=== PATIENT | female | born 2000 | race Caucasian/White ===

== ENCOUNTER 2020-11-16 22:42 | Inpatient (IN) ==
[2020-11-16] MEDS ORDERED: LIDOCAINE/EPINEPH/TETRACAINE 1 EA SYR EXT STA (23:08)
[2020-11-16 23:27] LABS: Basophils # (auto) 0.02 K/uL (0-0.2); Basophils % (auto) 0.3 %; Eosinophils # (auto) 0.01 K/uL (0-0.5); Eosinophils % (auto) 0.1 %; Hematocrit (blood only) 41.8 % (37-47); Hemoglobin 14.6 g/dL (12.0-16.0); Immature Granulocytes # (auto) 0.03 K/uL (0.00-0.02); Immature Granulocytes % (auto) 0.4 %; Lymphocytes # (auto) 2.31 K/uL (1.2-3.4); Lymphocytes % (auto) 32.4 %; Mean Corpuscular Hemoglobin 28.4 pg (25-34); Mean Corpuscular Hgb Conc 34.9 g/dL (32-36); Mean Corpuscular Volume 81.3 fL (80-100); Mean Platelet Volume 9.6 fL (7.4-10.4); Monocytes # (auto) 0.35 K/uL (0.11-0.59); Monocytes % (auto) 4.9 %; Neutrophils % (auto) 61.9 %; Platelet Count 341 K/uL (130-400); RDW Coefficient of Variation 13.1 % (11.5-14.5); RDW Standard Deviation 39.7 fL (36.4-46.3); Red Blood Count 5.14 M/uL (4.2-5.4); White Blood Count 7.12 K/uL (4.8-10.8)
[2020-11-16 23:48] LABS: Acetaminophen 136 ug/ml (10-30); Alanine Aminotransferase 22 U/L (12-78); Albumin Level 4.4 gm/dl (3.4-5.0); Aspartate Aminotransferase 20 U/L (15-37); BUN Creatinine Ratio 8.4 (10-20); Blood Urea Nitrogen 6 mg/dl (7-18); Calcium 8.6 mg/dl (8.5-10.1); Carbon Dioxide 23 mmol/L (21-32); Chloride 112 mmol/L (98-107); Creatinine Clr Calc Pharmacy 128.2 ml/min; Est GFR (African American) 147.1; Est GFR (Non-African American) 126.9; Glucose 92 mg/dl (70-99); Potassium 3.5 mmol/L (3.5-5.1); Salicylate < 1.7 mg/dl (2.8-20); Sodium 143 mmol/L (136-145)
[2020-11-16 23:58] LABS: Albumin Globulin Ratio 1.4 (0.9-2); Alkaline Phosphatase 115 U/L (45-117); Bilirubin,Total 0.3 mg/dl (0.2-1); Globulin 3.3 gm/dl (2.5-4.0); Thyroid Stimulating Hormone 0.914 uIu/ml (0.300-4.500); Total Protein 7.7 gm/dl (6.4-8.2)
[2020-11-17] LABS: Pregnancy Test, Serum Negative (Negative)
[2020-11-17 00:20] LABS: Influenza A virus by PCR Negative (Neg); Influenza B virus by PCR Negative (Neg); RSV by PCR Negative (Neg); SARS CoV2 RNA(COVID-19) InHosp NEGATIVE (Negative)
--- NOTE | 2020-11-17 00:45 | Emergency Department Note ---
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 The patient has been having problems for many months. The patient is very tearful. The patient was at her home tonight when she started having very severe mental health issues. She became very despondent. Her family members involved the police who involved the patient's roommates. The patient barricaded herself in her room for 2 hours. She was finally convinced to come out of the room. She admits to self-harm and cut her legs. She also admits to using alcoholic beverages this evening. She denies having any homicidal ideation. She states that she continues to have significant thoughts of harming herself. The patient states that she has been trying to get into counseling for many months. She has been unable to. Crisis was involved in her care and presented to the emergency department with her. The patient has no recent trauma. The patient states that she has never been admitted to the hospital for anything similar. ROS: See above HPI for pertinent positives & negatives. A total of 10 systems reviewed and were otherwise negative. PAST MEDICAL HISTORY: See Below PAST SURGICAL HISTORY: See Below FAMILY HISTORY: See Below SOCIAL HISTORY: See Below HOME MEDICATIONS: See Below ALLERGIES: See Below VITALS: See Below PHYSICAL EXAMINATION: GENERAL: The patient is awake and alert. She is tearful and anxious appearing. EYES: The conjunctivae are injected. The pupils are round and reactive. EARS, NOSE, MOUTH AND THROAT: The nose is without any evidence of any deformity. NECK: The neck is nontender and supple. RESPIRATORY: Normal respiratory effort is noted there is no evidence of wheezing rhonchi or rales CARDIOVASCULAR: Regular rate and rhythm noted there no murmurs rubs or gallops normal S1 normal S2. GASTROINTESTINAL: The abdomen is soft. Abdomen is nontender. MUSCULOSKELETAL/EXTREMITIES: There is no evidence of gross deformity full range of motion is noted in the hips and shoulders. SKIN: There is no obvious evidence of any rash. There are no petechiae, pallor or cyanosis noted. There are multiple superficial lacerations on the lower extremities. There is 1 deeper laceration on the lateral right thigh. No active bleeding was noted. NEUROLOGIC: Patient is awake alert and oriented x3 strength is symmetric patellar reflexes are 2+ bilaterally PSYCH: The patient is awake and alert. She makes poor eye contact for most of the evaluation. She is tearful. She is denying any active suicidal or homicidal ideation at this time. MEDICAL DECISION MAKING: The patient is a 20-year-old female who presented to the emergency department for mental health evaluation. The patient initially was very vague about her presentation. She was very tearful. She was also intoxicated. The patient was medically cleared in the emergency department but was unable to be cleared completely because of the alcohol level as well as the presence of Tylenol. The elevated Tylenol levels further explored and the patient ultimately did admit to taking an unknown amount of Tylenol at an unknown time. The patient was very vague and would not admit to what time she took this medication or how much. I discussed the patient's laboratory and radiographic studies with her. Because of her Tylenol overdose I discussed her case with the on-call [facility] hospitalist group. They have agreed to evaluate the patient in the emergency department for further management and disposition. Triage Nursing notes reviewed. Prior medical records reviewed Vital Signs: reviewed and remarkable for tachycardia. Differential diagnosis: Mood disorder, infection, hypoglycemia, electrolyte abnormalities, cardiac sources, intracerebral event, toxicologic, trauma, neurologic, as well as other pathologies. ER treatment provided: See below Diagnostics interpreted by me: ECG: EKG was obtained in the emergency department. My interpretation is sinus tachycardia at 112 bpm. There was no ectopy. There was no acute ST segment abnormalities noted. No previous tracing was available. QTC was 505 ms. Laboratory studies: As stated above and show below. Imaging studies: See below Consultation(s): I discussed this case with Dr. Minor [facility] agreed to evaluate the patient in the emergency department. ED COURSE: Procedures: Location: Lateral right thigh Total length: 2.0 cm Complexity: Low Verbal consent was obtained after the risks and benefits were explained, including but not limited to bleeding, scarring, infection, pain, and bone/joint/nerve damage. At this time, the risks of the procedure are less than the risks of NOT performing the procedure. A time out was taken and the correct patient and site identified. The skin was prepped with betadine. The target area was anesthetized with 5 ml of LET Gel. Copious irrigation was performed using normal saline. The skin was re-prepped with betadine and a sterile field set. The wound was explored for foreign bodies and none found. Examination revealed no injury to deep structures such as tendons, bone, or significant blood vessels. Debridement was not performed. The wound edges were approximated using skin glue. Hemostasis and excellent approximation was achieved. Detailed wound care instructions and signs and symptoms of infection reviewed with the patient. No complications and the patient tolerated the procedure well. Past Med/Surg History Medical History Depression Knee dislocation Social History Smoking Status: Never smoker Preferred Language: Taiwanese current occupational status: student Feels Safe at Home: Yes Allergies Allergies Allergy/AdvReac Type Severity Reaction Status Date / Time No Known Allergies Allergy Unverified 05/10/19 00:59 Home Meds Home Medications Medication Instructions Recorded Confirmed acetaminophen [Tylenol Extra 500 mg PO TID PRN 11/16/20 11/16/20 Strength] ibuprofen 600 mg PO TID PRN 11/16/20 11/16/20 Results & Data (ED) Vital Signs Vital Signs - 24 hr 11/16/20 22:55 11/17/20 00:50 Temperature 37.2 C Temperature Source Oral Pulse Rate 110 H Pulse Rate [Right Finger] 111 H Pulse Rhythm Regular Pulse Strength Normal Respiratory Rate 20 16 Respiratory Effort / Characteristics Non-Labored Respiratory Depth Normal Respiratory Pattern Regular Blood Pressure 137/84 Blood Pressure [Right Arm] 110/49 L Blood Pressure Mean 101 Blood Pressure Mean [Right Arm] 69 Blood Pressure Position Sitting Pulse Oximetry 98 95 Oxygen Delivery Method Room Air Room Air Sepsis Recent Fever Within 48 Hours No Sepsis New/Unexplained Change in Mental Status N/A Sepsis Action Taken by Nursing No Action Required Home Medications Current Medication List: was personally reviewed by me Laboratory Data Attestation: I reviewed the patient's lab results. Result diagrams: 11/16/20 23:15 11/16/20 23:15 Lab Results 11/16/20 11/16/20 11/16/20 Range/Units 23:15 23:15 23:15 WBC 7.12 (4.8-10.8) K/uL RBC 5.14 (4.2-5.4) M/uL Hgb 14.6 (12.0-16.0) g/dL Hct 41.8 (37-47) % MCV 81.3 (80-100) fL MCH 28.4 (25-34) pg MCHC 34.9 (32-36) g/dL RDW Std Deviation 39.7 (36.4-46.3) fL RDW Coeff of Adonay 13.1 (11.5-14.5) % Plt Count 341 (130-400) K/uL MPV 9.6 (7.4-10.4) fL Immature Gran % (Auto) 0.4 % Neut % (Auto) 61.9 % Lymph % (Auto) 32.4 % York % (Auto) 4.9 % Eos % (Auto) 0.1 % Baso % (Auto) 0.3 % Neut # (Auto) 4.40 (1.4-6.5) K/uL Lymph # (Auto) 2.31 (1.2-3.4) K/uL York # (Auto) 0.35 (0.11-0.59) K/uL Eos # (Auto) 0.01 (0-0.5) K/uL Baso # (Auto) 0.02 (0-0.2) K/uL Immature Gran # (Auto) 0.03 H (0.00-0.02) K/uL PT (9.0-12.0) Seconds INR (0.9-1.1) APTT (21.0-31.0) Seconds PTT Ratio Sodium 143 (136-145) mmol/L Potassium 3.5 (3.5-5.1) mmol/L Chloride 112 H (98-107) mmol/L Carbon Dioxide 23 (21-32) mmol/L Anion Gap 9.0 (3-11) BUN 6 L (7-18) mg/dl Creatinine 0.65 (0.6-1.2) mg/dl Est Cr Clr Drug Dosing 128.2 ml/min Est GFR ( Amer) 147.1 Est GFR (Non-Af Amer) 126.9 BUN/Creatinine Ratio 8.4 L (10-20) Glucose 92 (70-99) mg/dl Calcium 8.6 (8.5-10.1) mg/dl Total Bilirubin 0.3 (0.2-1) mg/dl AST 20 (15-37) U/L ALT 22 (12-78) U/L Alkaline Phosphatase 115 (45-117) U/L Troponin I < 0.015 (0-0.045) ng/ml Total Protein 7.7 (6.4-8.2) gm/dl Albumin 4.4 (3.4-5.0) gm/dl Globulin 3.3 (2.5-4.0) gm/dl Albumin/Globulin Ratio 1.4 (0.9-2) TSH 0.914 (0.300-4.500) uIu/ml HCG, Qual (Negative) Salicylates < 1.7 L (2.8-20) mg/dl Acetaminophen 136 H (10-30) ug/ml Ethyl Alcohol mg/dL (0-3) mg/dl COVID-19 Eval Order SARS-CoV-2 (PCR) (Negative) Influenza Type A (PCR) (Neg) Influenza Type B (PCR) (Neg) RSV (RT-PCR) (Neg) 11/16/20 11/16/20 11/16/20 Range/Units 23:15 23:15 23:17 WBC (4.8-10.8) K/uL RBC (4.2-5.4) M/uL Hgb (12.0-16.0) g/dL Hct (37-47) % MCV (80-100) fL MCH (25-34) pg MCHC (32-36) g/dL RDW Std Deviation (36.4-46.3) fL RDW Coeff of Adonay (11.5-14.5) % Plt Count (130-400) K/uL MPV (7.4-10.4) fL Immature Gran % (Auto) % Neut % (Auto) % Lymph % (Auto) % York % (Auto) % Eos % (Auto) % Baso % (Auto) % Neut # (Auto) (1.4-6.5) K/uL Lymph # (Auto) (1.2-3.4) K/uL York # (Auto) (0.11-0.59) K/uL Eos # (Auto) (0-0.5) K/uL Baso # (Auto) (0-0.2) K/uL Immature Gran # (Auto) (0.00-0.02) K/uL PT 10.9 (9.0-12.0) Seconds INR 1.1 (0.9-1.1) APTT 24.7 (21.0-31.0) Seconds PTT Ratio 0.9 Sodium (136-145) mmol/L Potassium (3.5-5.1) mmol/L Chloride (98-107) mmol/L Carbon Dioxide (21-32) mmol/L Anion Gap (3-11) BUN (7-18) mg/dl Creatinine (0.6-1.2) mg/dl Est Cr Clr Drug Dosing ml/min Est GFR ( Amer) Est GFR (Non-Af Amer) BUN/Creatinine Ratio (10-20) Glucose (70-99) mg/dl Calcium (8.5-10.1) mg/dl Total Bilirubin (0.2-1) mg/dl AST (15-37) U/L ALT (12-78) U/L Alkaline Phosphatase (45-117) U/L Troponin I (0-0.045) ng/ml Total Protein (6.4-8.2) gm/dl Albumin (3.4-5.0) gm/dl Globulin (2.5-4.0) gm/dl Albumin/Globulin Ratio (0.9-2) TSH (0.300-4.500) uIu/ml HCG, Qual Negative (Negative) Salicylates (2.8-20) mg/dl Acetaminophen (10-30) ug/ml Ethyl Alcohol mg/dL 165.3 H (0-3) mg/dl COVID-19 Eval Order SARS-CoV-2 (PCR) (Negative) Influenza Type A (PCR) (Neg) Influenza Type B (PCR) (Neg) RSV (RT-PCR) (Neg) 11/16/20 11/16/20 Range/Units 23:21 23:21 WBC (4.8-10.8) K/uL RBC (4.2-5.4) M/uL Hgb (12.0-16.0) g/dL Hct (37-47) % MCV (80-100) fL MCH (25-34) pg MCHC (32-36) g/dL RDW Std Deviation (36.4-46.3) fL RDW Coeff of Adonay (11.5-14.5) % Plt Count (130-400) K/uL MPV (7.4-10.4) fL Immature Gran % (Auto) % Neut % (Auto) % Lymph % (Auto) % York % (Auto) % Eos % (Auto) % Baso % (Auto) % Neut # (Auto) (1.4-6.5) K/uL Lymph # (Auto) (1.2-3.4) K/uL York # (Auto) (0.11-0.59) K/uL Eos # (Auto) (0-0.5) K/uL Baso # (Auto) (0-0.2) K/uL Immature Gran # (Auto) (0.00-0.02) K/uL PT (9.0-12.0) Seconds INR (0.9-1.1) APTT (21.0-31.0) Seconds PTT Ratio Sodium (136-145) mmol/L Potassium (3.5-5.1) mmol/L Chloride (98-107) mmol/L Carbon Dioxide (21-32) mmol/L Anion Gap (3-11) BUN (7-18) mg/dl Creatinine (0.6-1.2) mg/dl Est Cr Clr Drug Dosing ml/min Est GFR ( Amer) Est GFR (Non-Af Amer) BUN/Creatinine Ratio (10-20) Glucose (70-99) mg/dl Calcium (8.5-10.1) mg/dl Total Bilirubin (0.2-1) mg/dl AST (15-37) U/L ALT (12-78) U/L Alkaline Phosphatase (45-117) U/L Troponin I (0-0.045) ng/ml Total Protein (6.4-8.2) gm/dl Albumin (3.4-5.0) gm/dl Globulin (2.5-4.0) gm/dl Albumin/Globulin Ratio (0.9-2) TSH (0.300-4.500) uIu/ml HCG, Qual (Negative) Salicylates (2.8-20) mg/dl Acetaminophen (10-30) ug/ml Ethyl Alcohol mg/dL (0-3) mg/dl COVID-19 Eval Order [facility]sv at [facility] SARS-CoV-2 (PCR) NEGATIVE (Negative) Influenza Type A (PCR) Negative (Neg) Influenza Type B (PCR) Negative (Neg) RSV (RT-PCR) Negative (Neg) Administered Medications Discontinued Medications Acetylcysteine (Acetylcysteine Iv 21 Hr Regimen (>40kg)) 1 ea IV NOW STA; Protocol Stop: 11/17/20 01:18 Last Admin: 11/17/20 01:45 Dose: Not Given Documented by: [id number] Acetylcysteine 9,600 mg/ (Dextrose) 248 mls @ 200 mls/hr IV ONCE ONE Stop: 11/17/20 02:31 Last Admin: 11/17/20 01:44 Dose: 200 mls/hr Documented by: [id number] Sodium Chloride (Nss 1000ml) 1,000 mls @ 999 mls/hr IV .Q1H1M ONE Stop: 11/17/20 02:18 Last Admin: 11/17/20 01:38 Dose: 999 mls/hr Documented by: [id number] Lidocaine (Lidocaine/Epineph/Tetracaine 1 Ea Syr) 1 ea EXT NOW STA Stop: 11/16/20 23:09 Last Admin: 11/16/20 23:24 Dose: 1 ea Documented by: [id number] Ondansetron HCl (Ondansetron Inj 2 Mg/Ml 2 Ml Vial) 4 mg IV NOW STA Stop: 11/17/20 02:12 Last Admin: 11/17/20 02:20 Dose: 4 mg Documented by: [id number] Discharge Plan Visit Data Chief Complaint: Mental Health Evaluation Stated Complaint: MHID, LAC TO THIGH ED Provider: Josh Malave Discharge Problem: Depression with suicidal ideation, Alcohol intoxication, Tylenol overdose, Laceration of right thigh Patient Disposition: Being Evaluated by Hospitalist Condition: Good Forms Stand Alone Forms: My [facility], Suicide Prevention Resources Prescriptions Prescriptions: No Action acetaminophen [Tylenol Extra Strength] 500 mg Capsule 500 mg PO TID PRN (Reason: Pain) RF: 0 ibuprofen 600 mg Tablet 600 mg PO TID PRN (Reason: Pain) RF: 0 Referrals Referrals: [place] [Primary Care Provider] - Discharge Problem: Alcohol intoxication Qualifiers: Complication of substance-induced condition: uncomplicated Qualified Code(s): F10.920 - Alcohol use, unspecified with intoxication, uncomplicated Tylenol overdose Qualifiers: Encounter type: initial encounter Injury intent: intentional self-harm Qualified Code(s): T39.1X2A - Poisoning by 4-Aminophenol derivatives, intentional self-harm, initial encounter Laceration of right thigh Qualifiers: Encounter type: initial encounter Qualified Code(s): S71.111A - Laceration without foreign body, right thigh, initial encounter
[2020-11-17] MEDS ORDERED: AcetylCYSTEINE IV 21 HR REGIMEN (>40KG) IV STA (01:17)
[2020-11-17] MEDS ORDERED: SODIUM CHLORIDE 0.9% 1000ML 1,000 ML IV ONE (01:18)
[2020-11-17 01:19] LABS: INR 1.1 (0.9-1.1); Partial Thromboplastin Ratio 0.9; Partial Thromboplastin Time 24.7 Seconds (21.0-31.0); Prothrombin Time 10.9 Seconds (9.0-12.0)
[2020-11-17 01:41] LABS: Troponin I < 0.015 ng/ml (0-0.045)
[2020-11-17] MEDS ORDERED: ONDANSETRON INJ 2 MG/ML 2 ML VIAL IV STA (02:11)
--- NOTE | 2020-11-17 02:36 | History & Physical Report ---
Date of Service November 17, 2020 Assessment & Plan (1) Depression with suicidal ideation: Patient is a 20 year old female with no PMHx that presented with Crisis and law enforcement after a wellness check was called on the patient when she had locked herself in her room for 2 hours, taken an unknown quantity of tylenol and ibuprofen, and cut her R thigh with a knife. Suicidal Ideation in setting of Alcohol Intoxication and Tylenol Overdose -Patient noting longstanding mental issues which sound depressive in nature, no obvious trigger patient was willing to disclose at this time -Alcohol level 165 on admission, will continue to monitor though low suspicion for need for AWSS at this time -Tylenol level 136 on admission, no accurate timeframe. -NAC 21 hour started in the ED, will continue -Luckily no AST elevation at this time -Recheck CMP, Tylenol Level, and INR at 9PM on 11/17/20 roughly 2 hours prior to completion of NAC therapy, adjust NAC PRN -Zofran PRN for nausea -Suicide precautions in addition to 1:1 -Psychiatry consulted -302 for patient is signed and placed in chart -At this time patient continues to deny contact with her family Laceration of R Thigh -Repaired with skin glue in the ED -Well appearing, no bleeding noted Dispo: Med/Surg for IVF and 1:1 monitoring for suicidal precautions, once medically cleared will likely require stay with psychiatry FEN: Clear liquid diet - advance as tolerated, LR 125ml/hr x2L can DC as PO intake increases DVT: SCD Code: Full (2) Alcohol intoxication: (3) Tylenol overdose: (4) Laceration of right thigh: History of Present Illness Chief Complaint: Tylenol overdose Primary Care Provider: [facility] Patient is a 20 year old female with no PMHx that presented with Crisis and law enforcement after a wellness check was called on the patient when she had locked herself in her room for 2 hours, taken an unknown quantity of tylenol and ibuprofen, and cut her R thigh with a knife. Patient is relatively reserved and primarily answers questions with "no" or "yup," occasionally offering more details when unrelated to her reason for her current stay. 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 Through chart review it appears that patient has been having worsening mental health issues for several months now and has been unable to get herself set up with counseling due to lack of availability in the area. The patient had stated to others that she had attempted several times, often being met with busy signals or a lack of response when leaving a message. Tonight she states she was having "a bad night," but would not clarify how so or if there was a triggering event. She noted to other providers that she had been "drinking all day" and that at some point she started taking ibuprofen and ty lenol. She notes currently that while she had thoughts of self harm, IE the cut on her leg, she has no SI or HI. Concerns were raised by her family when she had messaged her brother juan, prompting the family to call Crisis and local enforcement for a wellness check. Upon arrival to the patient's apartment she had barricaded herself inside of her room for 2 hours until finally coming out and admitting the self harm. She notes this is the first time something like this has happened to her before. Currently patient states that she is not feeling suicidal or wanting to self harm. She also notes that she does not want her family notified of her current situation. Otherwise, history from the patient is very minimal. She does note some nausea since NAC was started. She denies any abdominal pain, chest pain, SOB. Medical, Surgical, and Social history were limited due to patients lack of response. Allergies Allergy/AdvReac Type Severity Reaction Status Date / Time No Known Allergies Allergy Unverified 05/10/19 00:59 Home Medications Medication Instructions Recorded Confirmed Type acetaminophen [Tylenol Extra 500 mg PO TID PRN 11/16/20 11/16/20 History Strength] ibuprofen 600 mg PO TID PRN 11/16/20 11/16/20 History Past Med/Surg History Medical History Depression Knee dislocation Social History Smoking Status: Never smoker Preferred Language: Hong Konger current occupational status: student Feels Safe at Home: Yes Review of Systems Review of Systems: All systems reviewed & are unremarkable except as noted in Subjective Physical Exam Constitutional: well developed and well nourished; + uncooperative Eyes: PERRL, conjunctivae normal, anicteric sclerae ENMT: external ear and nose normal, oropharynx normal Respiratory: normal respiratory effort, lungs clear to auscultation Cardiovascular: Rate/Rhythm: regular rhythm and + tachycardic Heart Sounds: no murmur Gastrointestinal (Abdomen): normal bowel sounds, soft, nontender, no hepatosplenomegaly Skin: Approximately 2cm laceration of the R thigh which appears approximated with skin glue Psychiatric: Orientation: alert, oriented x 3 and + guarded; + uncooperative Eye Contact: + poor eye contact Affect: + anxious affect and + flat affect Results & Data Results & Data ([facility]) Vital Signs (Past 12 Hours) Vital Signs Temp Pulse Pulse Resp BP BP Pulse Ox 11/17/20 00:50 111 H 16 110/49 L 95 11/16/20 22:55 37.2 C 110 H 20 137/84 98 Laboratory Results Abnormal lab results 11/16/20 11/16/20 11/16/20 Range/Units 23:15 23:15 23:15 Immature Gran # (Auto) 0.03 H (0.00-0.02) K/uL Chloride 112 H (98-107) mmol/L BUN 6 L (7-18) mg/dl BUN/Creatinine Ratio 8.4 L (10-20) Salicylates < 1.7 L (2.8-20) mg/dl Acetaminophen 136 H (10-30) ug/ml Ethyl Alcohol mg/dL (0-3) mg/dl 11/16/20 Range/Units 23:15 Immature Gran # (Auto) (0.00-0.02) K/uL Chloride (98-107) mmol/L BUN (7-18) mg/dl BUN/Creatinine Ratio (10-20) Salicylates (2.8-20) mg/dl Acetaminophen (10-30) ug/ml Ethyl Alcohol mg/dL 165.3 H (0-3) mg/dl Medications Administered Current Inpatient Medications Acetylcysteine 6,400 mg/ (Dextrose) 1,032 mls @ 62.5 mls/hr IV ONCE ONE Stop: 11/17/20 22:48 Acetylcysteine 3,200 mg/ (Dextrose) 516 mls @ 125 mls/hr IV ONCE ONE Stop: 11/17/20 06:25 Last Admin: 11/17/20 02:44 Dose: 125 mls/hr Documented by: Code Status & VTE Plan VTE Prophylaxis Plan VTE Prophylaxis will be ordered: Yes Supervising Physician Co-Signing Physician Notes Patient seen and examined, chart reviewed, case discussed with Dr. Lyon and I agree with his assessment and plan as documented above. Briefly, patient is a 20yo female with history of depression, worsening depressive symptoms. Patient took Ibuprofen and Tylenol this evening states it was an impulsive action rather than a true attempt to end her life. She does not recall how much she took or at what time. Drinking EtOH all day. Also cut her left thigh. On exam she is afebrile, tachycardic otherwise stable Skin left thigh cut with dermabond HEENT NC/AT. Neck supple Heart - +S1/S2, regular, tachycardic, no m/r/g Lungs CTA Abd - +BS, soft, NT/ND, no hepatomegaly Ext No edema Assessment/Plan 20yo female with EtOH intoxication, Tylenol and Ibuprofen overdose. Uncertain of when pills were taken, how many, strength or preparation of pills. -NAC per protocol. Repeat labs prior to concluding protocol -Psychiatry consultation -1:1 observation, suicide prevention strategies -Encourage patient to contact her parents -Remainder of plan as above Resident Activity Tracking Resident Involvement: Resident Care Provided Care Provided: Adult Hospital Medicine (1) Alcohol intoxication Complication of substance-induced condition: uncomplicated Qualified Code(s): F10.920 - Alcohol use, unspecified with intoxication, uncomplicated (2) Tylenol overdose Encounter type: initial encounter Injury intent: intentional self-harm Qualified Code(s): T39.1X2A - Poisoning by 4-Aminophenol derivatives, intentional self-harm, initial encounter (3) Laceration of right thigh Encounter type: initial encounter Qualified Code(s): S71.111A - Laceration without foreign body, right thigh, initial encounter
--- NOTE | 2020-11-17 04:24 | Billing Data ---
Date of Service November 17, 2020 Coding Level of Care Code 33291 Initial Inpt Care Lvl 2
[2020-11-17] MEDS ORDERED: ONDANSETRON INJ 2 MG/ML 2 ML VIAL IV PRN (05:07)
[2020-11-17] MEDS ORDERED: ONDANSETRON INJ 2 MG/ML 2 ML VIAL ONE (05:11)
[2020-11-17] MEDS: LACTATED RINGER'S 1,000 ML IV SCH ×2 (06:01→14:03)
[2020-11-17 12:39] LABS: INR 1.1 (0.9-1.1); Prothrombin Time 11.4 Seconds (9.0-12.0)
[2020-11-17 12:55] LABS: Alanine Aminotransferase 19 U/L (12-78); Albumin Level 3.3 gm/dl (3.4-5.0); Aspartate Aminotransferase 12 U/L (15-37); BUN Creatinine Ratio 9.6 (10-20); Blood Urea Nitrogen 5 mg/dl (7-18); Calcium 7.9 mg/dl (8.5-10.1); Carbon Dioxide 26 mmol/L (21-32); Chloride 111 mmol/L (98-107); Creatinine Clr Calc Pharmacy 163.3 ml/min; Est GFR (African American) > 150.0; Est GFR (Non-African American) 137.5; Glucose 83 mg/dl (70-99); Potassium 3.3 mmol/L (3.5-5.1); Sodium 142 mmol/L (136-145)
[2020-11-17 12:58] LABS: Alkaline Phosphatase 91 U/L (45-117); Bilirubin,Total 0.6 mg/dl (0.2-1); Globulin 3.2 gm/dl (2.5-4.0); Total Protein 6.5 gm/dl (6.4-8.2)
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
[2020-11-17] MEDS ORDERED: POTASSIUM CHLORIDE CRTAB 20 MEQ TABCR PO STA (14:39)
--- NOTE | 2020-11-17 14:48 | Hospitalist Progress Note ---
Date of Service November 17, 2020 Assessment & Plan (1) Depression with suicidal ideation: Patient is a 20 year old female with no PMHx that presented with Crisis and law enforcement after a wellness check was called on the patient when she had locked herself in her room for 2 hours, taken an unknown quantity of tylenol and ibuprofen, and cut her R thigh with a knife. Suicidal Ideation in setting of Alcohol Intoxication and Tylenol Overdose -Patient noting longstanding mental issues which sound depressive in nature, no obvious trigger patient was willing to disclose at this time -Alcohol level 165 on admission, will continue to monitor for alcohol withdrawal though low suspicion for need for AWSS at this time -Tylenol level 136 on admission, no accurate timeframe. Tylenol level down down to 10 -NAC 21 hour started in the ED, will continue through tonight and most likely will be able to discontinue Poison control is in contact with nursing staff -LFTs remain normal, INR remains normal -Recheck CMP, Tylenol Level, and INR at 9PM on 11/17/20 roughly 2 hours prior to completion of NAC therapy, adjust NAC PRN -Zofran PRN for nausea -Suicide precautions in addition to 1:1 -Psychiatry consulted-awaiting recommendations but most likely will need inpatient therapy after medically cleared -302 for patient is signed and placed in chart -Patient did not want her family contacted upon admission -Continue IV fluids through this evening -Advance diet from clear liquids to full now Laceration of R Thigh -Repaired with skin glue in the ED -Well appearing, no bleeding noted, very superficial Hypokalemia-potassium mildly low at 3.3-replace with oral potassium chloride 20 mEq Dispo: Med/Surg for IVF and 1:1 monitoring for suicidal precautions, will likely be medically cleared this evening if blood work remains normal and NAC protocol is completed-will likely require stay with DVT: SCD Code: Full (2) Alcohol intoxication: (3) Tylenol overdose: (4) Laceration of right thigh: (5) Hypokalemia: (6) DVT prophylaxis: Admission and Anticipated Discharge Date Admission Date: November 17, 2020 Subjective Pt feels ok. Denies nausea but has little appetite. Denies headache, CP, SOB, abd pain. Is making urine. Reports she just spoke to Psych PA a little while ago and is awaiting to hear on plan from Psych perspective. Review of Systems Review of Systems: All systems reviewed & are unremarkable except as noted in HPI & below Physical Exam Constitutional: WD/WN, vitals as above Eyes: PERRL, conjunctivae normal, anicteric sclerae ENMT: external ear and nose normal, oropharynx normal Neck: trachea midline, no thyromegaly Respiratory: normal respiratory effort, lungs clear to auscultation Cardiovascular: RRR, no murmur, no edema Chest (Breasts): Chest: normal inspection of chest Gastrointestinal (Abdomen): normal bowel sounds, soft, nontender, no hepatosplenomegaly Musculoskeletal: Extremities: extremities normal to inspection; no cyanosis and no clubbing Skin: no rashes, warm and dry + wound (Superficial wound right lateral thigh with Dermabond in place, nonbleeding ) Neurologic: moves all extremities and awake; no focal motor deficits Psychiatric: A+Ox3, euthymic affect Lymphatic: no lymphedema Results & Data Results & Data ([facility]) Vital Signs (Past 12 Hours) Vital Signs Temp Pulse Resp BP Pulse Ox 11/17/20 07:26 37.1 C 90 19 115/73 97 11/17/20 05:04 37.4 C 98 H 15 138/91 97 11/17/20 04:34 116 H 18 122/66 97 Laboratory Results 11/17/20 11/17/20 11/17/20 Range/Units 12:07 12:07 12:07 WBC (4.8-10.8) K/uL RBC (4.2-5.4) M/uL Hgb (12.0-16.0) g/dL Hct (37-47) % MCV (80-100) fL MCH (25-34) pg MCHC (32-36) g/dL RDW Std Deviation (36.4-46.3) fL RDW Coeff of Adonay (11.5-14.5) % Plt Count (130-400) K/uL MPV (7.4-10.4) fL Immature Gran % (Auto) % Neut % (Auto) % Lymph % (Auto) % [place] % (Auto) % Eos % (Auto) % Baso % (Auto) % Neut # (Auto) (1.4-6.5) K/uL Lymph # (Auto) (1.2-3.4) K/uL [place] # (Auto) (0.11-0.59) K/uL Eos # (Auto) (0-0.5) K/uL Baso # (Auto) (0-0.2) K/uL Immature Gran # (Auto) (0.00-0.02) K/uL PT 11.4 (9.0-12.0) Seconds INR 1.1 (0.9-1.1) APTT (21.0-31.0) Seconds PTT Ratio Sodium 142 (136-145) mmol/L Potassium 3.3 L (3.5-5.1) mmol/L Chloride 111 H (98-107) mmol/L Carbon Dioxide 26 (21-32) mmol/L Anion Gap 5.0 (3-11) BUN 5 L (7-18) mg/dl Creatinine 0.51 L (0.6-1.2) mg/dl Est Cr Clr Drug Dosing 163.3 ml/min Est GFR ( Amer) > 150.0 Est GFR (Non-Af Amer) 137.5 BUN/Creatinine Ratio 9.6 L (10-20) Glucose 83 (70-99) mg/dl Calcium 7.9 L (8.5-10.1) mg/dl Total Bilirubin 0.6 (0.2-1) mg/dl AST 12 L (15-37) U/L ALT 19 (12-78) U/L Alkaline Phosphatase 91 (45-117) U/L Troponin I (0-0.045) ng/ml Total Protein 6.5 (6.4-8.2) gm/dl Albumin 3.3 L (3.4-5.0) gm/dl Globulin 3.2 (2.5-4.0) gm/dl Albumin/Globulin Ratio 1.0 (0.9-2) TSH (0.300-4.500) uIu/ml HCG, Qual (Negative) Salicylates (2.8-20) mg/dl Acetaminophen 10 (10-30) ug/ml Ethyl Alcohol mg/dL (0-3) mg/dl COVID-19 Eval Order SARS-CoV-2 (PCR) (Negative) Influenza Type A (PCR) (Neg) Influenza Type B (PCR) (Neg) RSV (RT-PCR) (Neg) 11/17/20 11/16/20 11/16/20 Range/Units 08:07 23:21 23:21 WBC (4.8-10.8) K/uL RBC (4.2-5.4) M/uL Hgb (12.0-16.0) g/dL Hct (37-47) % MCV (80-100) fL MCH (25-34) pg MCHC (32-36) g/dL RDW Std Deviation (36.4-46.3) fL RDW Coeff of Adonay (11.5-14.5) % Plt Count (130-400) K/uL MPV (7.4-10.4) fL Immature Gran % (Auto) % Neut % (Auto) % Lymph % (Auto) % [place] % (Auto) % Eos % (Auto) % Baso % (Auto) % Neut # (Auto) (1.4-6.5) K/uL Lymph # (Auto) (1.2-3.4) K/uL [place] # (Auto) (0.11-0.59) K/uL Eos # (Auto) (0-0.5) K/uL Baso # (Auto) (0-0.2) K/uL Immature Gran # (Auto) (0.00-0.02) K/uL PT (9.0-12.0) Seconds INR (0.9-1.1) APTT (21.0-31.0) Seconds PTT Ratio Sodium (136-145) mmol/L Potassium (3.5-5.1) mmol/L Chloride (98-107) mmol/L Carbon Dioxide (21-32) mmol/L Anion Gap (3-11) BUN (7-18) mg/dl Creatinine (0.6-1.2) mg/dl Est Cr Clr Drug Dosing ml/min Est GFR ( Amer) Est GFR (Non-Af Amer) BUN/Creatinine Ratio (10-20) Glucose (70-99) mg/dl Calcium (8.5-10.1) mg/dl Total Bilirubin (0.2-1) mg/dl AST (15-37) U/L ALT (12-78) U/L Alkaline Phosphatase (45-117) U/L Troponin I (0-0.045) ng/ml Total Protein (6.4-8.2) gm/dl Albumin (3.4-5.0) gm/dl Globulin (2.5-4.0) gm/dl Albumin/Globulin Ratio (0.9-2) TSH (0.300-4.500) uIu/ml HCG, Qual (Negative) Salicylates (2.8-20) mg/dl Acetaminophen 25 (10-30) ug/ml Ethyl Alcohol mg/dL (0-3) mg/dl COVID-19 Eval Order CovFluRsv at [facility] SARS-CoV-2 (PCR) NEGATIVE (Negative) Influenza Type A (PCR) Negative (Neg) Influenza Type B (PCR) Negative (Neg) RSV (RT-PCR) Negative (Neg) 11/16/20 11/16/20 11/16/20 Range/Units 23:17 23:15 23:15 WBC (4.8-10.8) K/uL RBC (4.2-5.4) M/uL Hgb (12.0-16.0) g/dL Hct (37-47) % MCV (80-100) fL MCH (25-34) pg MCHC (32-36) g/dL RDW Std Deviation (36.4-46.3) fL RDW Coeff of Adonay (11.5-14.5) % Plt Count (130-400) K/uL MPV (7.4-10.4) fL Immature Gran % (Auto) % Neut % (Auto) % Lymph % (Auto) % [place] % (Auto) % Eos % (Auto) % Baso % (Auto) % Neut # (Auto) (1.4-6.5) K/uL Lymph # (Auto) (1.2-3.4) K/uL [place] # (Auto) (0.11-0.59) K/uL Eos # (Auto) (0-0.5) K/uL Baso # (Auto) (0-0.2) K/uL Immature Gran # (Auto) (0.00-0.02) K/uL PT 10.9 (9.0-12.0) Seconds INR 1.1 (0.9-1.1) APTT 24.7 (21.0-31.0) Seconds PTT Ratio 0.9 Sodium (136-145) mmol/L Potassium (3.5-5.1) mmol/L Chloride (98-107) mmol/L Carbon Dioxide (21-32) mmol/L Anion Gap (3-11) BUN (7-18) mg/dl Creatinine (0.6-1.2) mg/dl Est Cr Clr Drug Dosing ml/min Est GFR ( Amer) Est GFR (Non-Af Amer) BUN/Creatinine Ratio (10-20) Glucose (70-99) mg/dl Calcium (8.5-10.1) mg/dl Total Bilirubin (0.2-1) mg/dl AST (15-37) U/L ALT (12-78) U/L Alkaline Phosphatase (45-117) U/L Troponin I (0-0.045) ng/ml Total Protein (6.4-8.2) gm/dl Albumin (3.4-5.0) gm/dl Globulin (2.5-4.0) gm/dl Albumin/Globulin Ratio (0.9-2) TSH (0.300-4.500) uIu/ml HCG, Qual Negative (Negative) Salicylates (2.8-20) mg/dl Acetaminophen (10-30) ug/ml Ethyl Alcohol mg/dL 165.3 H (0-3) mg/dl COVID-19 Eval Order SARS-CoV-2 (PCR) (Negative) Influenza Type A (PCR) (Neg) Influenza Type B (PCR) (Neg) RSV (RT-PCR) (Neg) 11/16/20 11/16/20 11/16/20 Range/Units 23:15 23:15 23:15 WBC 7.12 (4.8-10.8) K/uL RBC 5.14 (4.2-5.4) M/uL Hgb 14.6 (12.0-16.0) g/dL Hct 41.8 (37-47) % MCV 81.3 (80-100) fL MCH 28.4 (25-34) pg MCHC 34.9 (32-36) g/dL RDW Std Deviation 39.7 (36.4-46.3) fL RDW Coeff of Adonay 13.1 (11.5-14.5) % Plt Count 341 (130-400) K/uL MPV 9.6 (7.4-10.4) fL Immature Gran % (Auto) 0.4 % Neut % (Auto) 61.9 % Lymph % (Auto) 32.4 % [place] % (Auto) 4.9 % Eos % (Auto) 0.1 % Baso % (Auto) 0.3 % Neut # (Auto) 4.40 (1.4-6.5) K/uL Lymph # (Auto) 2.31 (1.2-3.4) K/uL [place] # (Auto) 0.35 (0.11-0.59) K/uL Eos # (Auto) 0.01 (0-0.5) K/uL Baso # (Auto) 0.02 (0-0.2) K/uL Immature Gran # (Auto) 0.03 H (0.00-0.02) K/uL PT (9.0-12.0) Seconds INR (0.9-1.1) APTT (21.0-31.0) Seconds PTT Ratio Sodium 143 (136-145) mmol/L Potassium 3.5 (3.5-5.1) mmol/L Chloride 112 H (98-107) mmol/L Carbon Dioxide 23 (21-32) mmol/L Anion Gap 9.0 (3-11) BUN 6 L (7-18) mg/dl Creatinine 0.65 (0.6-1.2) mg/dl Est Cr Clr Drug Dosing 128.2 ml/min Est GFR ( Amer) 147.1 Est GFR (Non-Af Amer) 126.9 BUN/Creatinine Ratio 8.4 L (10-20) Glucose 92 (70-99) mg/dl Calcium 8.6 (8.5-10.1) mg/dl Total Bilirubin 0.3 (0.2-1) mg/dl AST 20 (15-37) U/L ALT 22 (12-78) U/L Alkaline Phosphatase 115 (45-117) U/L Troponin I < 0.015 (0-0.045) ng/ml Total Protein 7.7 (6.4-8.2) gm/dl Albumin 4.4 (3.4-5.0) gm/dl Globulin 3.3 (2.5-4.0) gm/dl Albumin/Globulin Ratio 1.4 (0.9-2) TSH 0.914 (0.300-4.500) uIu/ml HCG, Qual (Negative) Salicylates < 1.7 L (2.8-20) mg/dl Acetaminophen 136 H (10-30) ug/ml Ethyl Alcohol mg/dL (0-3) mg/dl COVID-19 Eval Order SARS-CoV-2 (PCR) (Negative) Influenza Type A (PCR) (Neg) Influenza Type B (PCR) (Neg) RSV (RT-PCR) (Neg) PG Care Time/CCT Total # of Minutes Spent Total Time Spent with Patient: Total time spent is greater than 50% in coordination of care (as documented) at patient's floor/unit and/or counseling patient: Coding Level of Care Code None Diagnoses Depression with suicidal ideation F32.9; R45.851 Alcohol intoxication F10.920 Complication of substance-induced condition: uncomplicated Tylenol overdose T39.1X2A Encounter type: initial encounter Injury intent: intentional self-harm Laceration of right thigh S71.111A Encounter type: initial encounter Hypokalemia E87.6 DVT prophylaxis Z29.9 (1) Alcohol intoxication Complication of substance-induced condition: uncomplicated Qualified Code(s): F10.920 - Alcohol use, unspecified with intoxication, uncomplicated (2) Tylenol overdose Encounter type: initial encounter Injury intent: intentional self-harm Qualified Code(s): T39.1X2A - Poisoning by 4-Aminophenol derivatives, intentional self-harm, initial encounter (3) Laceration of right thigh Encounter type: initial encounter Qualified Code(s): S71.111A - Laceration without foreign body, right thigh, initial encounter
--- NOTE | 2020-11-17 15:13 | Electrocardiogram Report ---
Test Reason : Blood Pressure : / mmHG Vent. Rate : 112 BPM Atrial Rate : 112 BPM P-R Int : 128 ms QRS Dur : 084 ms QT Int : 370 ms P-R-T Axes : 039 -37 049 degrees QTc Int : 505 ms Poor data quality, interpretation may be adversely affected Sinus tachycardia Left axis deviation Cannot rule out Anterior infarct , age undetermined Abnormal ECG No previous ECGs available Confirmed by Quincy Brannon ([id number]) on 11/17/2020 3:13:07 PM Referred By: REFERRED SELF Confirmed By:Quincy Brannon
[2020-11-17 19:23] LABS: INR 1.1 (0.9-1.1); Prothrombin Time 11.4 Seconds (9.0-12.0)
[2020-11-17 19:32] LABS: Alanine Aminotransferase 19 U/L (12-78); Aspartate Aminotransferase 10 U/L (15-37); BUN Creatinine Ratio 9.4 (10-20); Blood Urea Nitrogen 4 mg/dl (7-18); Calcium 7.9 mg/dl (8.5-10.1); Carbon Dioxide 25 mmol/L (21-32); Chloride 112 mmol/L (98-107); Creatinine Clr Calc Pharmacy 193.7 ml/min; Est GFR (African American) > 150.0; Est GFR (Non-African American) 145.4; Glucose 89 mg/dl (70-99); Potassium 3.3 mmol/L (3.5-5.1); Sodium 142 mmol/L (136-145)
[2020-11-17 19:35] LABS: Alkaline Phosphatase 86 U/L (45-117); Bilirubin,Total 0.7 mg/dl (0.2-1); Globulin 2.9 gm/dl (2.5-4.0); Total Protein 5.9 gm/dl (6.4-8.2)
[2020-11-17] MEDS ORDERED: POTASSIUM CHLORIDE CRTAB 20 MEQ TABCR PO ONE (20:00)
--- NOTE | 2020-11-17 20:23 | Discharge Summary ---
Date of Service November 17, 2020 Admission HPI Per Admitting Provider Patient is a 20 year old female with no PMHx that presented with Crisis and law enforcement after a wellness check was called on the patient when she had locked herself in her room for 2 hours, taken an unknown quantity of tylenol and ibuprofen, and cut her R thigh with a knife. Patient is relatively reserved and primarily answers questions with "no" or "yup," occasionally offering more details when unrelated to her reason for her current stay. 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 Through chart review it appears that patient has been having worsening mental health issues for several months now and has been unable to get herself set up with counseling due to lack of availability in the area. The patient had stated to others that she had attempted several times, often being met with busy signals or a lack of response when leaving a message. Tonight she states she was having "a bad night," but would not clarify how so or if there was a triggering event. She noted to other providers that she had been "drinking all day" and that at some point she started taking ibuprofen and tylenol. She notes currently that while she had thoughts of self harm, IE the cut on her leg, she has no SI or HI. Concerns were raised by her family when she had messaged her brother juan, prompting the family to call Crisis and local enforcement for a wellness check. Upon arrival to the patient's apartment she minaya d barricaded herself inside of her room for 2 hours until finally coming out and admitting the self harm. She notes this is the first time something like this has happened to her before. Currently patient states that she is not feeling suicidal or wanting to self harm. She also notes that she does not want her family notified of her current situation. Otherwise, history from the patient is very minimal. She does note some nausea since NAC was started. She denies any abdominal pain, chest pain, SOB. Medical, Surgical, and Social history were limited due to patients lack of response. Principal Diagnosis Tylenol overdose, suicidal gesture Discharge Exam Constitutional WD/WN, vitals as above Eyes PERRL, conjunctivae normal, anicteric sclerae ENMT external ear and nose normal, oropharynx normal Neck trachea midline, no thyromegaly Respiratory normal respiratory effort, lungs clear to auscultation Cardiovascular RRR, no murmur, no edema Chest (Breasts) Chest: normal inspection of chest Gastrointestinal (Abdomen) normal bowel sounds, soft, nontender, no hepatosplenomegaly Musculoskeletal Extremities: extremities normal to inspection; no cyanosis and no clubbing Skin no rashes, warm and dry + wound (Superficial wound right lateral thigh with Dermabond in place, nonbleeding ) Neurologic moves all extremities and awake; no focal motor deficits Psychiatric A+Ox3, euthymic affect Lymphatic no lymphedema Discharge Data Allergies Allergy/AdvReac Type Severity Reaction Status Date / Time No Known Allergies Allergy Unverified 05/10/19 00:59 Consultations 11/17/20 01:18 ED Decision to Admit Stat 11/17/20 05:07 Consult Psychiatry Routine Hospital Course (1) Depression with suicidal ideation: Patient is a 20 year old female with no PMHx that presented with Crisis and law enforcement after a wellness check was called on the patient when she had locked herself in her room for 2 hours, taken an unknown quantity of tylenol and ibuprofen, and cut her R thigh with a knife. Suicidal Ideation in setting of Alcohol Intoxication and Tylenol Overdose -Patient noting longstanding mental issues which sound depressive in nature, no obvious trigger patient was willing to disclose at this time -Alcohol level 165 on admission, she had no signs or symptoms of alcohol withdrawal -Tylenol level 136 on admission, no accurate timeframe. Tylenol level down down to 4 at the time of discharge -NAC 21 hour protocol completed Poison control was contacted at 1999 on 11/17 by myself-they agree that she is medically stable for discharge and no further NAC treatment is needed -LFTs remain normal, INR remains normal -Suicide precautions in addition to 1:1 -Psychiatry consulted-plan for inpatient admission -302 for patient is signed and placed in chart -Patient did not want her family contacted upon admission, but now is willing- nurse updated the father by phone Received IV fluids and is now tolerating p.o. Laceration of R Thigh -Repaired with skin glue in the ED -Well appearing, no bleeding noted, very superficial, no further care needed Hypokalemia-potassium mildly low at 3.3-replaced with oral potassium chloride. No further labs needed-suspect this will improve with increased oral intake Dispo: She is now medically cleared and can be discharged to inpatient psychiatric unit DVT: SCD Code: Full (2) Alcohol intoxication: (3) Tylenol overdose: (4) Laceration of right thigh: (5) Hypokalemia: (6) DVT prophylaxis: Total Time Total Time Spent Total Time Spent (In Minutes): 35 minutes Discharge Plan Discharge Items Patient Disposition: Transfer Behavioral Health Fac Reason For Visit: INTENTIONAL TYLENOL OVERDOSE Discharge Diagnosis: Intentional Tylenol overdose, suicidal gesture Condition on Discharge: Good Activity: Resume your previous activity Non-emergency contact: Primary Care Provider Call non-emergency contact if: you have any medication questions and your symptoms worsen Follow-up/Referrals: [facility] [Primary Care Provider] - Diet: Regular Addtl Attending Provider Instructions: You admitted for Tylenol overdose and given medication to help keep your liver from failing. Your liver tests were normal and her Tylenol level came down to undetectable levels. You are now being transferred to the inpatient behavioral [facility] for further treatment. There is no further treatment needed for your leg wound. Pending Studies at Discharge: No Stand-Alone Forms: My [employer] Skilled Items DNR: No Lines: None Urinary Catheter: No Medications and DC Order Prescriptions: Discontinued acetaminophen [Tylenol Extra Strength] 500 mg Capsule 500 mg PO TID PRN (Reason: Pain) RF: 0 ibuprofen 600 mg Tablet 600 mg PO TID PRN (Reason: Pain) RF: 0 Discharge Orders: Discharge Order (Routine); Ordered 11/17/20 Ordered By: Liset Castillo Admission Data Admit Date/Time: 11/17/20 02:33 Attending Provider: Liset Castillo Admit Provider: Boy Lyon Primary Care Provider: [facility] Other Providers: Amna Minor Candace R. Coding Level of Care Code D/C Day Management >30 mins Diagnoses Depression with suicidal ideation F32.9; R45.851 Alcohol intoxication F10.920 Complication of substance-induced condition: uncomplicated Tylenol overdose T39.1X2A Encounter type: initial encounter Injury intent: intentional self-harm Laceration of right thigh S71.111A Encounter type: initial encounter Hypokalemia E87.6 DVT prophylaxis Z29.9
== END 2020-11-17 23:50 | DRG 881 ==
LOC: ED 22:42 → 3E 11-17 02:33 → SUATTDRO 11-17 02:33 → 3E 11-17 04:45

== ENCOUNTER 2020-11-17 23:57 | Inpatient (IN) ==
[2020-11-18] MEDS ORDERED: MAGNESIUM HYDROXIDE SUSP 30 ML UDC PO PRN (00:19)
[2020-11-18] MEDS ORDERED: BISMUTH SUBSALICYLATE LIQD 236 ML PO PRN (00:19)
[2020-11-18] MEDS ORDERED: ALUMINUM/MAGNESIUM SUSP 30 ML UDC PO PRN (00:19)
[2020-11-18] MEDS ORDERED: hydrOXYzine HCl 25 MG TAB PO PRN ×2 (00:19)
[2020-11-18] MEDS ORDERED: SODIUM CHLORIDE 0.65% NA SOLN 45 ML (OCEAN) PRN (00:19)
--- NOTE | 2020-11-18 18:05 | History & Physical ---
Date of Service November 18, 2020 Impression / Recommendations Impression This is the case of a 20-year-old college student who, while intoxicated, took an overdose of "about half a bottle" of Tylenol, called her parents to alert them, her parents called her roommate, and her roommate called 911. The patient also cut her right leg, near the patella, with a sharp object and the cut was deep enough that it required surgical glue for closure. 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 She has struck the treatment team by being taciturn and seemingly quite angry underneath. The staff is also notes that she has been largely uncooperative with their assessments, and she provides minimal information, often answers with 1 or 2 words, names that she cannot elaborate, and repeats that she insists that she just wants to go home. It seems clear that this is a case of a rather immature young woman who, among other things, is drinking to the point of intoxication and not infrequently to the point of blacking out, but does not seem to have any insight into the fact that a very obvious precipitant to her psychiatric hospitalization was her alcohol abuse. She also does not seem to understand that she needs to make some sort of commitment or effort to stop using alcohol and when it is suggested to her that she might work on that she responds with an angry glare, followed by "I just want to go home." She becomes angry when it is suggested to her that she had any role whatsoever in the unhappy circumstances in which she currently finds herself, and she also seems to have no awareness or functional understanding of the fact that she, as an adult woman, will need to work with us as a way of effectively evaluating and treating her. I was able to get her to acknowledge that she thinks she "might be" depressed at baseline, and she does acknowledge that she has a past history of being treated for depressionalthough she notes that she cannot remember if the treatment was effective. I talked to her about the addition of an antidepressant medication such as venlafaxine. We reviewed material risks and anticipated benefits, and I asked her if she be willing to try venlafaxine as a treatment for depression, with the understanding that she cannot drink while taking it. The patient replied, "I guess." Basically, she comes across as a somewhat oppositional defiant person who, for example, when advised that we would like to see her engaging with other patients and with the staff by staying out in the dayroom, starting tonight with dinner, the patient turned her back to the examiner and walked directly to her darkened bedroom, got into bed, and pulled the blankets over her head. Also of note is when I suggested the patient that if she plans to enter the field of mental health she might find the current hospitalization and the various treatments offered to be instructive the patient replied, angrily, "that is stupid! Can I leave now?" It will be important to help the patient recognize that she is using very immature coping strategies and really needs to look at her own role in which she considers to be an outrageous set of circumstances (psychiatrically hospitalized involuntarily). (1) Depression with suicidal ideation: 11/18/20 -The patient has been admitted to the [facility], adult inpatient psychiatric unit. She has been placed on suicide precautions and is being closely observed. She has also been referred to and is being actively encouraged to participate in individual, group, and activity therapies. When ready, we will also arrange for a family meeting and of note is the fact the patient's father has recently flown into [place] from his home in [place] because of the patient's psychiatric hospitalization. -Initially for this patient as she seems to have no insight into the fact that her current situation is one that she will have to help us address. 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 The patient will need to be confronted about the fact that she is essentially doing the very opposite of what she will need to do in order to assure us that she is safe to go home and that "stonewalling" by repeatedly saying "I want to go home," and "I do not know," and "I do not remember," and "nothing" is not consistent with forming a therapeutic alliance and achieving improvement in recovery. -Material risks and anticipated benefits of venlafaxine have been reviewed with the patient. She has no questions, but nodded in the affirmative when asked if she understood. We will begin venlafaxine extended release 37.5 mg daily, starting tomorrow. (2) Alcohol abuse: 11/18 -Although the patient has offered no explanation for why she made a suicide attempt (overdose of Tylenol and deep laceration of her leg) other than she was drunk, she simply stares at us when we suggest that she might want to work on figuring out a way to avoid any use of alcohol in the future, given what is happened. -Today, I was not even able to get the patient to acknowledge that alcohol use may have played a role in this, even though she is saying only that she "made a bad choice" while drunk. She certainly does not appear to be ready to hear about alcohol treatment or recovery. -We have talked to her about the fact that certainly alcohol lowers impulse control and contributes to individuals making bad choices. However, the bad choice of making a serious suicide attempt is not a typical impulsive behavior that can be solely attributed to alcohol intoxication, and we need to look at other factors, either social or psychological, that are likely to be contributing. Inventory Assets Strengths: Intelligent. Supportive family. (Her father has flown in [place] from [place] this evening.) Senior in college with a favorable GPA Needs: Lacks insight. Needs to cooperate with the evaluation. Needs to take responsibility for her current circumstances and the need to actively participate with this and in alliance to address what ever underlying sets of problems may have contributed to her making a serious suicide attempt. Risk Factors Assessment Lacks insight. Uncooperative. Externalizes responsibility. Male: No : Yes Do You Have Access To A Gun?: No Health Problems: No Mental Health Diagnoses: Yes Substance Use Disorders: Yes (Binge alcohol drinking. 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 She reports a past history of depression, and she was admitted 11/17/20 23:57 on a 302 involuntary commitment following a suicide attempt by overdose of "about a half a bottle" of Tylenol. Chief Complaint "Bad choices.". History of Present Illness The patient is a 20-year-old woman who was admitted after she telephoned her parents in [place] and told them that she had taken an overdose of Tylenol. She tells us that she does not know how many Tylenol she took but she believes that it was "about half of a [small] bottle." The patient also cut her right leg, near the patella, with a sharp object. The cut was deep enough that surgical glue was required to close it. The patient also acknowledges that she was intoxicated at the time, and notes that she drinks to the point of intoxication, and sometimes to the point of blackout, twice a week with friends, usually at a local bar. When if she could identify what she was feeling when she took the overdose and cut herself, and the patient's reply was "not really." Reports from the staff throughout the day have been that the patient is quite taciturn and tends to give vague or even flippant answers. In this behavior persisted quite markedly during her formal psychiatric evaluation. For instance, during the initial portion of the evaluation I mentioned that I un derstood that she had taken an overdose and said that I could not remember what it was that she had taken, but thought that maybe had heard that it was "Klonopin." She replied, "if you say so." I then asked her what the strength of the Klonopin was and she replied "500 mg." I explained that if she took Klonopin the strength was not 500 mg and suggested that she might mean 0.5 mg. The patient then looked annoyed and said, "it was 500 mg. Maybe it was not Klonopin. Maybe it was Tylenol." The patient reported that she had no particular precipitant for taking the overdose. I ran through situational factors that might contribute to the decision to take an overdose, such as an argument with a friend, academic trouble, feelings of being left out, romantic disappointments, stress, and others. With each suggestion, the patient simply shrugged and said "no." I then asked her if she had thoughts of suicide prior to taking the overdose and she again said, simply, "no." I asked her if she had recently been feeling sad or depressed, and she said "maybe. I do not know." Eventually, it became necessary for me to call the process which was clearly that the patient is considering the treatment team as the enemy and is acting as if she thinks that we are somehow responsible for her current situation. Her reply was "what ever." I then confronted her with the fact that she had gotten drunk, had taken dangerous overdose of pills, had cut herself in a location that could lead to significant orthopedic complications, was not trying to work with us to help us understand what it happened and what we can do to help prevent it from happening again, and, at the same time, appears to not only act as if the current situation is our fault, she acts as if it is our problem. The patient's response to that was to say, "I just want to go home. You have no reason to keep me here." I then explained to the patient that while she may think that refusing to work with us is going to lead to a discharge, the opposite is more likely to be the case. I pointed out that she had spent the entire day isolating herself in her room, had refused to participate in groups, and had been fairly consistently unpleasant with staff. I suggested that she look at the situation when she found herself, look at her role in the current situation, start thinking about the role that alcohol may be playing in where she finds her self, and show us that she is serious about getting to the bottom of her problems as a way of showing us that she is, in fact, at lower risk for future episodes of serious self-harm. Of note is the fact that my last words to her before ending the encounter was to tell her that she could begin now by entering the day room and getting to know some the other patients, and may be sharing dinner with them. She turned her back on me, said nothing, and walked directly to her room and got back into bed. Past Psychiatric History Previous Psych History: The patient reports that she saw a psychiatrist or other mental health professional ("I do not remember") when she was about 17. She claims to not have any particular recollection about the circumstances, she also insists that she does not remember the names of the medications she was given, although she does acknowledge that she was given antidepressant medications. I ran through a list of common antidepressant medications, and the patient responded an annoyance by saying "I told you I do not remember." Current Psychiatric Diagnosis: Depression Outpatient Services: Patient reports that she has started outpatient treatment here in [place]. She does not recall the name of her therapist, and says that she is only had "a couple appointments." The appointments have been remote, and she is not certain of the location of the therapist office nor does she know if the therapist is part of a group or a solo practitioner. Previous Psych Admissions: Reports no previous psychiatric hospitalizations. Do You Have Access To A Gun?: No History of Previous Suicide Attempt: No Past Medication Trials: I asked the patient if she remembers taking Prozac, Celexa, Lexapro, Wellbutrin, Paxil, Zoloft, Cymbalta, and Effexor. She says that she has tried several psychiatric medications in the past but unconvincingly of sorts that she does not remember the names, even well enough to know whether a certain medication sounds familiar. Past Head Trauma/Neuro History History of Concussion/Seizure: No Allergies Allergy/AdvReac Type Severity Reaction Status Date / Time No Known Allergies Allergy Unverified 05/10/19 00:59 Family History Family History of: Depression Family Mental Health History Comment: depression with father and paternal grandfather, Alcohol History Hx of Alcohol Use Over the Past 12 Months: Yes (2x/week; often drinks until intoxicated or blacks out) AUDIT Total Score: 16 Smoking Use Have You Smoked or Used Tobacco Products in the Last 30 Days: No Smoking Status: Unknown if ever smoked Substance History Hx of Prescription Med Misuse Over the Past 12 Months: No Hx of Over the Counter Med Misuse Over the Past 12 Months: No Hx of Inhalent Misuse Over the Past 12 Months: No Hx of Organic Substance Use Over the Past 12 Months: No Hx of Illegal Substances/Street Drug Use Over Past 12 Months: No Problems as a Result of Past Substance Use: None Identified Personal History Living Arrangements: Apartment Living Arrangements Comments: Living in rental with 5 roommates, 3 of them are friends. 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 Employment Status: Student Marital Status: Single Number Of Children: 0 Beliefs That Will Affect Care: None Current Legal Problems: No Hx Legal Problems: No Hx Traumatic Life Events: No Patient History Medical History Depression Knee dislocation Social History Smoking Status: Unknown if ever smoked Second Hand Exposure: No; Hx Alcohol Use: Yes Alcohol type: hard liquor Hx Substance Use: No Preferred Language: Ukrainian Communication Ability: Effective Personal Health Coach Required: No Beliefs That Will Affect Care: None Current Living Situation: Other current occupational status: student Feels Safe at Home: Yes Assistive Devices: None Review of Systems Review of Systems: All systems reviewed & are unremarkable except as noted in HPI & below In addition, at least 10 systems were reviewed with the patient as part of the psychiatric assessment. The admission physical examination and review of systems is completed by Dr. Boy Saenz, DO has been reviewed and is excepted for the purposes of medical clearance to the behavioral health unit. Physical Exam Psychiatric: Orientation: alert and oriented x 3 The patient was less than fully cooperative and seemed angry and as if she sees herself as a victim of an injustice by being admitted to the psychiatric unit following a suicide attempt. Apperance: appropriately dressed and appropriately groomed Eye Contact: + poor eye contact Motor Behavior: no abnormal motor movements Patient's speech was sparse and soft. She said little spontaneously. Periodically, however, she would become angry and shout and answer. For example, one point she said "I just told you!" And another time, "she said "I told you I do not know!" Affect: + tearful affect and + angry affect "I just want to go home." Thought Process: goal directed thought process Thought Content: reality based without delusions Primary defense mechanisms are clearly externalization and denial. Suicidal Thoughts: denies suicidal thoughts Admits she took an overdose and cut herself as part of a suicide attempt immediately prior to admission. Homicidal Thoughts: denies homicidal thoughts Hallucinations: no auditory hallucinations and no visual hallucinations The patient was largely uncooperative with the assessment, and often responded "I do not know," or "I do not remember" when asked questions that would reveal her recent, and remote memories. Estimated Intelligence: + above average estimated intelligence Although the patient presents as rather childlike and immature. Insight: + poor insight Judgement: + poor judgement Vital Signs (Past 24 Hours): Last Vital Signs Temp 36.8 C 11/18/20 06:30 Pulse 86 11/18/20 06:31 Resp 16 11/18/20 06:30 BP 119/83 11/18/20 06:31 Pulse Ox 97 11/18/20 00:27 Results & Data ([facility]) Current Inpatient Medications Current Inpatient Medications: Current Inpatient Medications Al Hydrox/Mg Hydrox/Simethicone (Aluminum/Magnesium Susp 30 Ml Udc) 30 ml PO Q4H PRN PRN Reason: GI Upset Stop: 12/18/20 00:18 Bismuth Subsalicylate (Bismuth Subsalicylate Liqd 236 Ml) 15 ml PO PRN PRN PRN Reason: Loose Stool Stop: 12/18/20 00:18 Hydroxyzine HCl (Hydroxyzine Hcl 25 Mg Tab) 50 mg PO HSZ PRN PRN Reason: Insomnia Stop: 12/18/20 00:18 Hydroxyzine HCl (Hydroxyzine Hcl 25 Mg Tab) 25 mg PO Q4H PRN PRN Reason: Anxiety Stop: 12/18/20 00:18 Magnesium Hydroxide (Magnesium Hydroxide Susp 30 Ml Udc) 30 ml PO DAILY PRN PRN Reason: Constipation Stop: 12/18/20 00:18 Sodium Chloride (Sodium Chloride 0.65% Na Soln 45 Ml (Horatio)) 1 - 2 sprays NA PRN PRN PRN Reason: Nasal Dryness/Congestion Stop: 12/18/20 00:18
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
[2020-11-19] MEDS: VENLAFAXINE HCL XR 37.5 MG CAPXR PO SCH (10:17)
[2020-11-19] MEDS: IBUPROFEN 600 MG TAB PO PRN ×2 (13:40→20:10)
[2020-11-19] MEDS: ONDANSETRON 4 MG OD TAB PO PRN (14:35)
--- NOTE | 2020-11-20 07:39 | Psychiatric Progress Note ---
Date of Service November 20, 2020 Impression / Recommendations Impression 20-year-old female admitted involuntarily for inpatient psychiatric treatment on 11/17/20 after a <24hr stay on the medical floor related to alcohol intoxication, self-harm by cutting, and acetaminophen overdose as a suicide attempt - having presented to the ED on a 302 warrant. Pt was uncooperative and not forthcoming with information during medical admission and psychiatric consultation - involuntary admission was suggested as patient was unwilling for inpatient treatment. She was resistant to engage with treatment during her first day on the unit, but is slowly coming around to therapeutic support. She agreed to a trial of venlafaxine ER which will be titrated as tolerated. Pt remains at acute risk of suicide if discharged prematurely. (1) Depression with suicidal ideation: 11/18/20 -The patient has been admitted to the [facility], adult inpatient psychiatric unit. She has been placed on suicide precautions and is being closely observed. She has also been referred to and is being actively encouraged to participate in individual, group, and activity therapies. When ready, we will also arrange for a family meeting and of note is the fact the patient's father has recently flown into [facility] from his home in [place] because of the patient's psychiatric hospitalization. -Initially for this patient as she seems to have no insight into the fact that her current situation is one that she will have to help us address. 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 The patient will need to be confronted about the fact that she is essentially doing the very opposite of what she will need to do in order to assure us that she is safe to go home and that "stonewalling" by repeatedly saying "I want to go home," and "I do not know," and "I do not remember," and "nothing" is not consistent with forming a therapeutic alliance and achieving improvement in recovery. -Material risks and anticipated benefits of venlafaxine have been reviewed with the patient. She has no questions, but nodded in the affirmative when asked if she understood. We will begin venlafaxine extended release 37.5 mg daily, starting tomorrow. 11/19 - Pt denies SI today, but is only now beginning to open up about the stressors leading to her overdose/SIB. She is coming around to therapeutic interventions and requires ongoing inpatient psychiatric treatment. - Continue venlafaxine ER 37.5mg for tomorrow morning - discussed potential to increase to 75mg on Saturday if desired - Encourage engagement in group and recreational programming - Pt willing for family meeting with parents - Assist with development of healthy and effective coping skills and completion of a written safety plan 11/20 - Titrating venlafaxine to 75mg starting tomorrow. Pt has prn ondansetron from an episode of nausea yesterday, no complaints of such today. - Denies SI today - family meeting with father this afternoon - Will need to arrange appointments with outpatient providers tomorrow, referral for psychiatry. - Continue to encourage patient to process outpatient stressors, assist with development of healthy and effective coping skills (2) Alcohol abuse: 11/18 -Although the patient has offered no explanation for why she made a suicide attempt (overdose of Tylenol and deep laceration of her leg) other than she was drunk, she simply stares at us when we suggest that she might want to work on figuring out a way to avoid any use of alcohol in the future, given what is happened. -Today, I was not even able to get the patient to acknowledge that alcohol use may have played a role in this, even though she is saying only that she "made a bad choice" while drunk. She certainly does not appear to be ready to hear about alcohol treatment or recovery. -We have talked to her about the fact that certainly alcohol lowers impulse control and contributes to individuals making bad choices. However, the bad choice of making a serious suicide attempt is not a typical impulsive behavior that can be solely attributed to alcohol intoxication, and we need to look at other factors, either social or psychological, that are likely to be contributing. 11/19 - Pt admits to attempt a few months ago to stop drinking, reporting she was made fun of by her "friends" for this decision. - Continue to assess patient's desire for change in this area - outpatient treatment as indicated. (3) Irregular menses: 11/19 - Reports recent work-up for 2 months of irregular menses (heavy bleeding, excessive pain, extended duration and more frequent menses). Has Nexplanon for control. - Pt states she has noticed a dramatic worsening of depressive symptoms in the past 2 months, believing these concerns are related. - Pt was to have follow-up with provider at [facility] regarding this concern - will work with patient to reschedule appointment as this has been an area of anxiety. Inventory Assets Strengths: Intelligent. Supportive family. (Her father has flown in [facility] from [place] this evening.) Senior in college with a favorable GPA Needs: Lacks insight. Needs to cooperate with the evaluation. Needs to take responsibility for her current circumstances and the need to actively participate with this and in alliance to address what ever underlying sets of problems may have contributed to her making a serious suicide attempt. Risk Factors Assessment Male: No : Yes Do You Have Access To A Gun?: No Health Problems: No Mental Health Diagnoses: Yes Substance Use Disorders: Yes (Binge alcohol drinking. 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 She reports a past history of depression, and she was admitted 11/17/20 23:57 on a 302 involuntary commitment following a suicide attempt by overdose of "about a half a bottle" of Tylenol. Chief Complaint "Um, I've been ok." Review of Systems Notes Constitutional: poor sleep last evening Cardiovascular: denied Respiratory: denied Gastrointestinal: episode of nausea yesterday, now resolved Neurological: denied Psychiatric: denies symptoms other than stated above Total of at least 10 systems reviewed, pertinent positives as above and in HPI. Sleep Information Total Hours of Sleep: 6 Sleep Comments: . Meal Information Percent Meal Consumed - Lunch: 0 Percent Meal Consumed - Dinner: 50 Subjective Subjective Patient was seen & assessed and interval progress reviewed with nursing and social work. Staff report the patient has been more engaged with treatment and is opening up more with conversations with staff. Pt agreed to a family meeting with her father this afternoon. Pt was seen today to assess progress since admission. Pt states that she is doing well. She denied any acute mood concerns. She states that groups have been helpful and she has felt better able to open up with her peers. Pt denies ongoing SI. She admits she is feeling a little nervous about the family meeting this afternoon. She chose to only involve her father in the formal meeting but states she is hoping her father will review updates with her mother. Pt is agreeable with increasing her dose of venlafaxine for tomorrow morning. She denied acute physical concerns presently, but did have poor sleep last evening and an episode of nausea yesterday. Pt denied other needs or concerns at this time. Physical Exam Psychiatric Orientation: alert, oriented x 3 and cooperative (opening up in conversations) Apperance: appropriately dressed, appropriately groomed and appeared stated age Eye Contact: + fair eye contact Motor Behavior: steady gait and station some notable facial grimacing, almost a tic-like manner Speech: normal rate/rhythm/volume of speech Affect: + blunted affect (subdued mood ) Mood: + depressed mood and + anxious mood (nervous about family meeting) Thought Process: goal directed thought process, clear/coherent thought process and thought association intact Thought Content: reality based without delusions; no hopelessness and no worthlessness Suicidal Thoughts: denies suicidal thoughts, denies suicidal plan and denies suicidal intent Homicidal Thoughts: denies homicidal thoughts Hallucinations: no auditory hallucinations and no visual hallucinations Cognition: attention grossly intact and language grossly intact Estimated Intelligence: consistent with education level Insight: + fair insight Judgement: + fair judgement Vital Signs (Past 24 Hours) Last Vital Signs Temp 36.7 C 11/20/20 06:53 Pulse 99 H 11/20/20 06:54 Resp 16 11/20/20 06:53 BP 122/85 11/20/20 06:54 Pulse Ox 97 11/18/20 00:27 Results & Data ([facility]) Current Inpatient Medications Current Inpatient Medications: Current Inpatient Medications Al Hydrox/Mg Hydrox/Simethicone (Aluminum/Magnesium Susp 30 Ml Udc) 30 ml PO Q4H PRN PRN Reason: GI Upset Stop: 12/18/20 00:18 Last Admin: 11/19/20 18:14 Dose: 30 ml Documented by: Bismuth Subsalicylate (Bismuth Subsalicylate Liqd 236 Ml) 15 ml PO PRN PRN PRN Reason: Loose Stool Stop: 12/18/20 00:18 Hydroxyzine HCl (Hydroxyzine Hcl 25 Mg Tab) 50 mg PO HSZ PRN PRN Reason: Insomnia Stop: 12/18/20 00:18 Hydroxyzine HCl (Hydroxyzine Hcl 25 Mg Tab) 25 mg PO Q4H PRN PRN Reason: Anxiety Stop: 12/18/20 00:18 Ibuprofen (Ibuprofen 600 Mg Tab) 600 mg PO Q6H PRN PRN Reason: Pain Stop: 12/19/20 12:51 Last Admin: 11/19/20 20:10 Dose: 600 mg Documented by: Magnesium Hydroxide (Magnesium Hydroxide Susp 30 Ml Udc) 30 ml PO DAILY PRN PRN Reason: Constipation Stop: 12/18/20 00:18 Ondansetron HCl (Ondansetron 4 Mg Od Tab) 4 mg PO Q8H PRN PRN Reason: Nausea Stop: 12/19/20 13:51 Last Admin: 11/19/20 14:35 Dose: 4 mg Documented by: Sodium Chloride (Sodium Chloride 0.65% Na Soln 45 Ml ([place])) 1 - 2 sprays NA PRN PRN PRN Reason: Nasal Dryness/Congestion Stop: 12/18/20 00:18 Venlafaxine HCl (Venlafaxine Hcl Xr 37.5 Mg Capxr) 37.5 mg PO QAM ZAID Stop: 12/19/20 08:59 Last Admin: 11/19/20 10:17 Dose: 37.5 mg Documented by: Mental Health & Subst Abuse Tx Therapist Name of Therapist: Beckie Portillo [facility] Date of Therapist Appointment: 11/23/20 Time of Therapist Appointment: 10am Post Discharge Appointments Primary Care Physician Name Of Family Doctor: [facility]
[2020-11-20] MEDS: VENLAFAXINE HCL XR 37.5 MG CAPXR PO SCH (09:54)
[2020-11-20] MEDS ORDERED: BACITRACIN OINT 15 GM TUBE EXT PRN (11:22)
[2020-11-20] MEDS: ONDANSETRON 4 MG OD TAB PO PRN (16:53)
[2020-11-21] MEDS ORDERED: VENLAFAXINE HCL XR 75 MG CAPXR PO SCH (09:00)
--- NOTE | 2020-11-21 09:46 | Discharge Summary ---
Date of Service November 21, 2020 History of Present Illness The patient is a 20-year-old woman who was admitted after she telephoned her parents in [place] and told them that she had taken an overdose of Tylenol. She tells us that she does not know how many Tylenol she took but she believes that it was "about half of a [small] bottle." The patient also cut her right leg, near the patella, with a sharp object. The cut was deep enough that surgical glue was required to close it. The patient also acknowledges that she was intoxicated at the time, and notes that she drinks to the point of intoxication, and sometimes to the point of blackout, twice a week with friends, usually at a local bar. When if she could identify what she was feeling when she took the overdose and cut herself, and the patient's reply was "not really." Reports from the staff throughout the day have been that the patient is quite taciturn and tends to give vague or even flippant answers. In this behavior persisted quite markedly during her formal psychiatric evaluation. For instance, during the initial portion of the evaluation I mentioned that I understood that she had taken an overdose and said that I could not remember what it was that she had taken, but thought that maybe had heard that it was "Klonopin." She replied, "if you say so." I then asked her what the strength of the Klonopin was and she replied "500 mg." I explained that if she took Klonopin the strength was not 500 mg and suggested that she might mean 0.5 mg. The patient then looked annoyed and said, "it was 500 mg. Maybe it was not Klonopin. Maybe it was Tylenol." The patient reported that she had no particular precipitant for taking the overdose. I ran through situational factors that might contribute to the decision to take an overdose, such as an argument with a friend, academic trouble, feelings of being left out, romantic disappointments, stress, and others. With each suggestion, the patient simply shrugged and said "no." I then asked her if she had thoughts of suicide prior to taking the overdose and she again said, simply, "no." I asked her if she had recently been feeling sad or depressed, and she said "maybe. I do not know." Eventually, it became necessary for me to call the process which was clearly that the patient is considering the treatment team as the enemy and is acting as if she thinks that we are somehow responsible for her current situation. Her reply was "what ever." I then confronted her with the fact that she had gotten drunk, had taken dangerous overdose of pills, had cut herself in a location that could lead to significant orthopedic complications, was not trying to work with us to help us understand what it happened and what we can do to help prevent it from happening again, and, at the same time, appears to not only act as if the current situation is our fault, she acts as if it is our problem. The patient's response to that was to say, "I just want to go home. You have no reason to keep me here." I then explained to the patient that while she may think that refusing to work with us is going to lead to a discharge, the opposite is more likely to be the case. I pointed out that she had spent the entire day isolating herself in her room, had refused to participate in groups, and had been fairly consistently unpleasant with staff. I suggested that she look at the situation when she found herself, look at her role in the current situation, start thinking about the role that alcohol may be playing in where she finds her self, and show us that she is serious about getting to the bottom of her problems as a way of showing us that she is, in fact, at lower risk for future episodes of serious self-harm. Of note is the fact that my last words to her before ending the encounter was to tell her that she could begin now by entering the day room and getting to know some the other patients, and may be sharing dinner with them. She turned her back on me, said nothing, and walked directly to her room and got back into bed. Physical Exam Psychiatric Orientation: alert and oriented x 3 Apperance: appropriately dressed, appropriately groomed and appeared stated age Eye Contact: good eye contact Motor Behavior: steady gait and station and no abnormal motor movements Speech: normal rate/rhythm/volume of speech Affect: + blunted affect (remains primarily subdued, but more interactive) Mood: no depressed mood and no anxious mood Thought Process: goal directed thought process, clear/coherent thought process and thought association intact Thought Content: reality based without delusions; no hopelessness and no worthlessness Suicidal Thoughts: denies suicidal thoughts, denies suicidal plan and denies suicidal intent Homicidal Thoughts: denies homicidal thoughts Hallucinations: no auditory hallucinations and no visual hallucinations Cognition: recent memory grossly intact, attention grossly intact and language grossly intact Estimated Intelligence: consistent with education level Insight: + fair insight Judgement: + fair judgement Vital Signs (Past 24 Hours) Last Vital Signs Temp 36.7 C 11/21/20 06:40 Pulse 64 11/21/20 06:41 Resp 16 11/21/20 06:40 BP 117/81 11/21/20 06:41 Pulse Ox 97 11/18/20 00:27 Principal Diagnosis - Major depressive disorder, recurrent, severe, without psychotic features - Alcohol abuse Psychiatric Data See "Hospital Course" Section for Daily Care Summary - 20-year-old female admitted involuntarily for inpatient psychiatric treatment on 11/17/20 after a <24hr stay on the medical floor related to alcohol intoxication, self-harm by cutting, and acetaminophen overdose as a suicide attempt - having presented to the ED on a 302 warrant. Acetaminophen level was 136, BAL at time of ED presentation was 165.3. Pt was uncooperative and not forthcoming with information during medical admission and psychiatric consultation - involuntary admission was suggested as patient was unwilling for inpatient treatment. She was resistant to engage with treatment during her first day on the unit, but slowly came around to therapeutic support. She agreed to a trial of venlafaxine ER which was titrated to a dose of 75mg prior to her discharge. Pt verbalized a plan to complete her semester of schooling in [place], but return to [place] with parents for the summer. Father was involved in a support meeting where discharge and safety planning were discussed. Parents agreed to work on arranging outpatient psychiatric services in [place] for when patient returns home. In the interim, she has a local therapist she will continue to see and will be able to receive medication refills through her PCP at [facility]. Pt verbalized awareness of the recommendation that she continue antidepressant medication after discharge and work closely with outpatient supports for ongoing management of depressive symptoms. Pt had denied suicidality throughout her psychiatric stay, and did eventually open and and process the various stressors contributing to her overdose. Pt engaged in group programming and was supportive of peers. Based on review of patient's case and their current presentation, risk of harm to self or others is no longer perceived to be acute. Management of symptoms on an outpatient basis seems the most appropriate and least restrictive setting. Pt seems appropriate for discharge with recommendation for consistent follow-up with outpatient psychiatric prescriber and therapist. Pt verbalized understanding of discharge plan reviewed and is agreeable with plan to be discharged to her apartment today, father will remain in town to assist with transition home from the hospital. Day of Discharge Assessment Patient's case was reviewed and discussed during treatment team. Staff report the patient has been cooperative and attending groups, regularly out of her room. Pt had a positive meeting with her father yesterday, discharge and safety planning reviewed. Pt was seen today to assess readiness for discharge. Pt admitted that she was feeling "good." She states her meeting was "better than I thought it would be." She reports that she will be completing the semester here in [place], but father is agreeing to remain in the area as long as the patient requires to assist with transition back to school. Pt states she is planning to return home to [place] for the summer and parents are looking into outpatient psychiatric services in the area. Pt will continue with her local therapist in the interim. Thus far, she denies any acute concerns from titration of venlafaxine. Pt denies SI and reports feeling comfortable with discharge plan discussed, hoping to leave today. She reports feeling as though she met her treatment goals and denies other concerns at this time. ROS: Constitutional: denied Cardiovascular: denied Respiratory: denied Gastrointestinal: denied Neurological: denied Psychiatric: denies symptoms other than stated above Total of at least 10 systems reviewed, pertinent positives as above and in HPI. Transition of Care Transition Of Care Record: was reviewed with the patient Advance Directives Advance Directives Information Provided: Yes Advance Directives: No Mental Health Advance Directive: No Advance Directives on File: No Living Will: No Power of Director Equipment: No Advance Directives Reason:: Declines as Mental Health Visit. Risk Factors Assessment Presenting risk factors reviewed on discharge. Precipitating stressors mitigated by: admission for inpatient psychiatric observation and treatment, initiation of medications to target presenting symptoms, attendance of therapeutic treatment groups, development of healthy and effective coping strategies, involvement of outpatient supports, completion of a safety plan, confirmation of extra medications being secured, confirmation of guns and weapons being secured, discussion regarding substance abuse and effects on mental health diagnoses, and education on diagnoses. Pt has demonstrated improvement in condition with regard to improvement in mood, resolution of SI, involvement of father in support meeting, discussions regarding psychiatric aftercare and coordination with outpatient supports. At this time, patient is requesting discharge and is no longer considered to be at acute risk of harm to herself or others. Pt will be discharged with recommendation for ongoing outpatient psychiatric treatment. Male: No : Yes Do You Have Access To A Gun?: No Health Problems: No Mental Health Diagnoses: Yes Substance Use Disorders: Yes (Binge alcohol drinking. Admits to twice a week to intoxication) Previous Attempt: No Family History of Suicide: No Previous Psychiatric Hospitalization: No Hopelessness: No Smoker: No Protective Factors Assessment Scientologist Beliefs: No : No Responsible for Young Children: No Employed: No (But attends school full-time and maintains a favorable GPA) Stable Relationships: Yes Supportive Family: Yes Good Rapport with Provider: No Absence of Any Risk Factors Above: No Tobacco Cessation at Discharge Tobacco Cessation Medication Prescribed at Discharge: Not Applicable/Non-Smoker Total Time Total Time Spent: Greater Than 30 Minutes Total Time Includes: Examination of the patient, Discharge Planning, Medication Reconciliation and Communication with other providers Discharge Data Lab Results Vital Signs Temp Pulse Resp BP 11/21/20 06:41 64 117/81 11/21/20 06:40 36.7 C 63 16 120/78 11/20/20 19:50 37.4 C Hospital Course (1) Depression with suicidal ideation: 11/18/20 -The patient has been admitted to the [facility], adult inpatient psychiatric unit. She has been placed on suicide precautions and is being closely observed. She has also been referred to and is being actively encouraged to participate in individual, group, and activity therapies. When ready, we will also arrange for a family meeting and of note is the fact the patient's father has recently flown into [place] from his home in [place] because of the patient's psychiatric hospitalization. -Initially for this patient as she seems to have no insight into the fact that her current situation is one that she will have to help us address. 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 The patient will need to be confronted about the fact that she is essentially doing the very opposite of what she will need to do in order to assure us that she is safe to go home and that "stonewalling" by repeatedly saying "I want to go home," and "I do not know," and "I do not remember," and "nothing" is not consistent with forming a therapeutic alliance and achieving improvement in recovery. -Material risks and anticipated benefits of venlafaxine have been reviewed with the patient. She has no questions, but nodded in the affirmative when asked if she understood. We will begin venlafaxine extended release 37.5 mg daily, starting tomorrow. 11/19 - Pt denies SI today, but is only now beginning to open up about the stressors leading to her overdose/SIB. She is coming around to therapeutic interventions and requires ongoing inpatient psychiatric treatment. - Continue venlafaxine ER 37.5mg for tomorrow morning - discussed potential to increase to 75mg on Saturday if desired - Encourage engagement in group and recreational programming - Pt willing for family meeting with parents - Assist with development of healthy and effective coping skills and completion of a written safety plan 11/20 - Titrating venlafaxine to 75mg starting tomorrow. Pt has prn ondansetron from an episode of nausea yesterday, no complaints of such today. - Denies SI today - family meeting with father this afternoon - Will need to arrange appointments with outpatient providers tomorrow, referral for psychiatry. - Continue to encourage patient to process outpatient stressors, assist with development of healthy and effective coping skills (2) Alcohol abuse: 11/18 -Although the patient has offered no explanation for why she made a suicide attempt (overdose of Tylenol and deep laceration of her leg) other than she was drunk, she simply stares at us when we suggest that she might want to work on figuring out a way to avoid any use of alcohol in the future, given what is happened. -Today, I was not even able to get the patient to acknowledge that alcohol use may have played a role in this, even though she is saying only that she "made a bad choice" while drunk. She certainly does not appear to be ready to hear abo ut alcohol treatment or recovery. -We have talked to her about the fact that certainly alcohol lowers impulse control and contributes to individuals making bad choices. However, the bad choice of making a serious suicide attempt is not a typical impulsive behavior that can be solely attributed to alcohol intoxication, and we need to look at other factors, either social or psychological, that are likely to be contributing. 11/19 - Pt admits to attempt a few months ago to stop drinking, reporting she was made fun of by her "friends" for this decision. - Continue to assess patient's desire for change in this area - outpatient treatment as indicated. (3) Irregular menses: 11/19 - Reports recent work-up for 2 months of irregular menses (heavy bleeding, excessive pain, extended duration and more frequent menses). Has Nexplanon for control. - Pt states she has noticed a dramatic worsening of depressive symptoms in the past 2 months, believing these concerns are related. - Pt was to have follow-up with provider at [facility] regarding this concern - will work with patient to reschedule appointment as this has been an area of anxiety. Mental Health & Subst Abuse Tx Psychiatrist Name of Psychiatrist: Parents to arrange in [place] - provided with [employer] e-approved options Psychiatric Appointment Comment: Pt planning to [facility] to continue medication management until pt returns home Therapist Name of Therapist: Beckie Portillo [facility] The[facility]'s Date of Therapist Appointment: 11/23/20 Time of Therapist Appointment: 10am Post Discharge Appointments Primary Care Physician Name Of Family Doctor: [facility] Date of Appointment with PCP: 11/28/20 Time of Appointment with PCP: 3pm Smoking Cessation Counseling Tobacco Cessation Medication Prescribed at Discharge: Not Applicable/Non-Smoker Discharge Plan Discharge Items Patient Disposition: Home - Self-Care Reason For Visit: MDD Discharge Diagnosis: - Major depressive disorder - Binge drinking Condition on Discharge: Fair Activity: Resume your previous activity Non-emergency contact: Primary Care Provider, Psychiatrist and Therapist Call non-emergency contact if: you have any medication questions and your symptoms worsen Follow-up/Referrals: [facility] [Primary Care Provider] - Diet: Regular Addtl Attending Provider Instructions: SPECIAL CARE INSTRUCTIONS: 1. Follow through with your scheduled aftercare appointments. If unable to keep an appointment, please call to reschedule. 2. Take your medication only as prescribed. Medication should not be changed or stopped without the approval of your doctor. In the event of worsening symptoms or concerns about side effects, contact your doctor immediately. 3. Utilize new healthy coping skills, anger management skills, and stress management skills learned during your hospitalization. Journal feelings and process them with a support person. Identify stressors or situations that may result in relapse, deterioration or inappropriate behaviors and develop a plan to deal with those issues. 4. If your coping skills are ineffective and you are in crisis, contact your outpatient providers for direction. If unable to reach your providers, please call the [facility] CRISIS LINE AT , go to the [facility] walk-in center at [address], [address], [place], or go to the closest Emergency Room. 5. Avoid alcohol and un-prescribed drugs. 6. You have been provided with the Mental Health Advance Directives Pamphlet for your review. AFTERCARE APPOINTMENTS: * Please call your insurance company prior to your scheduled appointment to confirm your aftercare providers are covered. Take your insurance information to your appointments. WHO TO CALL AND WHEN: Medical Emergencies: For questions or emergencies related to your hospital stay, please contact the Inpatient Behavioral Health Unit at [phone]. A director of radio services is on-call 04/03 for the Behavioral Health Unit for emergencies At any time you feel your situation is an emergency, you may also call 911 immediately. Pending Studies at Discharge: No Stand-Alone Forms: [facility], Smoking Cessation Medications and DC Order Prescriptions: New venlafaxine 75 mg Capsule,Extended Release 24hr 75 mg PO QAM 30 Days Qty: 30 RF: 0 Discharge Orders: Discharge Order (Routine); Ordered 11/21/20 Ordered By: Liset Dawn Admission Data Admit Date/Time: 11/17/20 23:57 Attending Provider: Meng Love Admit Provider: Alondra Goldstein Primary Care Provider: [facility] Other Interventions: Discharge Summary Assessment (RN) Last Done: 11/21/20 12:02 PSY Interdisciplinary Discharge Planning Last Done: 11/21/20 12:01 Coding Level of Care Code 90638 D/C day mgmt > 30 min Diagnoses Depression with suicidal ideation F32.9; R45.851 Alcohol abuse F10.10 Irregular menses N92.6
== END 2020-11-21 13:00 | disposition home or self-care (01) | DRG 885 ==
LOC: 3S 23:57